=== PATIENT | male | born 1950 | race Caucasian/White ===

== ENCOUNTER → 2016-10-18 | Outpatient (CLI) | payer OTHER ==
[~2016-10-18] MED LIST: GLC/500 PO; HYZ/10015 PO; LPR25 PO; METF500T PO; SIMV80TA2 PO; TERA5CAP PO
[2016-10-18 16:22] LABS: ALT/SGPT 26 U/L (12-78); AST/SGOT 13 U/L (15-37); BLOOD UREA NITROGEN 16 mg/dl (7-18); BUN/CREATININE RATIO 16.2 (10-20); CALCIUM 9.9 mg/dl (8.5-10.1); CARBON DIOXIDE 29 mmol/L (21-32); CHLORIDE 105 mmol/L (98-107); GLUCOSE 113 mg/dl (70-99); POTASSIUM 4.4 mmol/L (3.5-5.1); SODIUM 141 mmol/L (136-145)
[2016-10-18 16:23] LABS: RATIO 134.9 mcg/mg (0-30.0)
[2016-10-18 16:24] LABS: ALKALINE PHOSPHATASE 57 U/L (45-117); CHOLESTEROL 152 mg/dl (0-200); CHOLESTEROL/HDL RATIO 4.6; HDL CHOLESTEROL 33 mg/dl; LDL CHOLESTEROL CALCULATED 67 mg/dl; TRIGLYCERIDES 260 mg/dl (0-150); VERY LOW DENSITY LIPOPROT CALC 52 mg/dl
[2016-10-19 06:32] LABS: ESTIMATED AVERAGE GLUCOSE 177 mg/dl; HA1C FLAG Normal (Normal)
== END | disposition home or self-care (01) ==
LOC: C.LAB1850 14:52
PROVIDERS: ATTEND Internal Medicine Endocrinology, Diabetes & Metabolism
DX: E11.9 Type 2 diabetes mellitus without complications (principal)

== ENCOUNTER → 2017-01-25 | Outpatient (CLI) | payer OTHER ==
[2017-01-25 10:08] LABS: ESTIMATED AVERAGE GLUCOSE 174 mg/dl; HA1C FLAG Normal (Normal)
[2017-01-25 10:11] LABS: BLOOD UREA NITROGEN 17 mg/dl (7-18); BUN/CREATININE RATIO 15.1 (10-20); CALCIUM 9.6 mg/dl (8.5-10.1); CARBON DIOXIDE 27 mmol/L (21-32); CHLORIDE 105 mmol/L (98-107); GLUCOSE 120 mg/dl (70-99); POTASSIUM 4.3 mmol/L (3.5-5.1); SODIUM 139 mmol/L (136-145)
[2017-01-25 10:26] LABS: PROLACTIN 8.8 ng/mL
== END | disposition home or self-care (01) ==
LOC: C.LAB1850 08:49
PROVIDERS: ATTEND Physician Assistant
DX: E11.9 Type 2 diabetes mellitus without complications (principal); N52.9 Male erectile dysfunction, unspecified

== ENCOUNTER → 2017-03-06 | Outpatient (CLI) | payer OTHER ==
--- NOTE | 2017-03-06 12:44 | DIAGNOSTIC IMAGING REPORT ---
CHEST 2 VIEWS ROUTINE CLINICAL HISTORY: CHRONIC COUGH COMPARISON STUDY: 09/04/2012 FINDINGS: The heart is normal in size. There is basilar interstitial thickening. There is aortic tortuosity/ectasia which remain stable. There is no lobar consolidation. No pleural effusions are visualized.[ IMPRESSION: Slight progression in the basilar residual thickening. No evidence of focal pulmonary consolidation. Electronically signed by: Guillaume Stewart M.D. 03/06/2017 12:43 PM Dictated Date/Time: 03/06/2017 12:41 PM
== END | disposition home or self-care (01) ==
LOC: C.RAD 12:11
PROVIDERS: ATTEND Family Medicine
DX: R05 Cough (principal)

== ENCOUNTER → 2017-03-16 | Outpatient (CLI) | payer OTHER ==
--- NOTE | 2017-03-17 09:53 | PULMONARY FUNCTION TEST ---
CLINICAL DATA: 66-year-old male with a height of 71 inches and a weight of [address] Hickey for evaluation of shortness of breath and cough. Spirometry pre-bronchodilator was performed. FINDINGS: Prebronchodilator spirometry demonstrates very mild obstructive changes. FVC was 85% of predicted. FEV1 was 83% of predicted. [id number] was 79% of predicted. IMPRESSION: Very mild small airway obstruction possibly consistent with asthma. However, the patient had a difficult time doing reproducible results due to cough.
== END | disposition home or self-care (01) ==
LOC: C.RC 11:20
PROVIDERS: ATTEND Family Medicine
DX: R05 Cough (principal)

== ENCOUNTER → 2017-08-01 | Outpatient (CLI) | payer OTHER ==
[2017-08-01 16:04] LABS: ALBUMIN 3.9 gm/dl (3.4-5.0); ALT/SGPT 31 U/L (12-78); AST/SGOT 19 U/L (15-37); BLOOD UREA NITROGEN 15 mg/dl (7-18); CALCIUM 9.4 mg/dl (8.5-10.1); CARBON DIOXIDE 25 mmol/L (21-32); CREATININE 1.04 mg/dl (0.60-1.40); GLUCOSE 129 mg/dl (70-99); POTASSIUM 4.2 mmol/L (3.5-5.1); SODIUM 137 mmol/L (136-145)
[2017-08-01 16:06] LABS: ALKALINE PHOSPHATASE 58 U/L (45-117); CHOLESTEROL 170 mg/dl (0-200); LDL CHOLESTEROL CALCULATED 92 mg/dl; TOTAL PROTEIN 7.7 gm/dl (6.4-8.2)
[2017-08-01 19:36] LABS: CREATININE RANDOM URINE 64.1 mg/dl
[2017-08-02 06:04] LABS: HEMOGLOBIN A1C 7.2 % (4.5-5.6)
== END | disposition home or self-care (01) ==
LOC: C.LAB1850 12:47
PROVIDERS: ATTEND Physician Assistant
DX: E11.9 Type 2 diabetes mellitus without complications (principal)

== ENCOUNTER → 2017-08-21 | Outpatient (CLI) | payer OTHER ==
--- NOTE | 2017-08-21 10:33 | DIAGNOSTIC IMAGING REPORT ---
ULTRASOUND KIDNEYS AND BLADDER CLINICAL HISTORY: Hypertension. Chronic kidney disease. COMPARISON STUDY: Abdominal CT dated 12/21/2009. TECHNIQUE: Real-time, grayscale, and color flow sonography of the kidneys and bladder is performed. Images are reviewed in the transverse and longitudinal planes. FINDINGS: Kidneys: The right kidney is not identified. There is compensatory hypertrophy of the left kidney which measures 16.4 x 7.7 x 7.3 cm. There is no hydronephrosis. A small exophytic cyst measures up to 1.7 cm. Numerous parapelvic cysts are identified on the left. No shadowing renal calculi are identified. There is no sonographic evidence of contour deforming renal mass lesion. No perinephric fluid is identified. Bladder: The bladder is normal in appearance. The left ureteral jet was seen. Upper abdomen: Survey images of the upper abdomen show hepatomegaly and hepatic steatosis. IMPRESSION: 1. The right kidney is not identified. 2. There is compensatory hypertrophy of the left kidney. No hydronephrosis is seen. 3. There are numerous left-sided parapelvic cysts. 4. The bladder was normal as imaged. Electronically signed by: Harsh Duval M.D. 08/21/2017 10:32 AM Dictated Date/Time: 08/21/2017 10:29 AM
== END | disposition home or self-care (01) ==
LOC: C.ULTR 09:48
PROVIDERS: ATTEND Internal Medicine Nephrology
DX: I12.9 Hypertensive chronic kidney disease with stage 1 through stage 4 chronic kidney disease, or unspecified chronic kidney disease (principal); N18.9 Chronic kidney disease, unspecified; R80.9 Proteinuria, unspecified; N28.81 Hypertrophy of kidney; N28.1 Cyst of kidney, acquired

== ENCOUNTER → 2017-08-21 | Outpatient (CLI) | payer OTHER ==
[2017-08-21 09:54] LABS: HEMATOCRIT 43.4 % (42-52); HEMOGLOBIN 14.6 g/dL (14.0-18.0); MEAN CELL VOLUME 93.5 fL (80-100); MEAN CORPUSCULAR HEMOGLOBIN 31.5 pg (25-34); MEAN CORPUSCULAR HGB CONC 33.6 g/dl (32-36); MEAN PLATELET VOLUME 10.4 fL (7.4-10.4); PLATELET COUNT 259 K/uL (130-400); RED CELL DISTRIBUTION WIDTH CV 14.2 % (11.5-14.5); RED CELL DISTRIBUTION WIDTH SD 47.8 fL (36.4-46.3); WHITE BLOOD COUNT 9.94 K/uL (4.8-10.8)
[2017-08-21 10:35] LABS: ALBUMIN 3.7 gm/dl (3.4-5.0); ALT/SGPT 25 U/L (12-78); AST/SGOT 16 U/L (15-37); BLOOD UREA NITROGEN 16 mg/dl (7-18); CALCIUM 9.6 mg/dl (8.5-10.1); CARBON DIOXIDE 26 mmol/L (21-32); CREATININE 1.11 mg/dl (0.60-1.40); GLUCOSE 171 mg/dl (70-99); POTASSIUM 4.3 mmol/L (3.5-5.1); SODIUM 136 mmol/L (136-145)
[2017-08-21 10:37] LABS: ALKALINE PHOSPHATASE 63 U/L (45-117); TOTAL PROTEIN 7.5 gm/dl (6.4-8.2)
== END | disposition home or self-care (01) ==
LOC: C.LAB1850 08:52
PROVIDERS: ATTEND Internal Medicine Nephrology
DX: I12.9 Hypertensive chronic kidney disease with stage 1 through stage 4 chronic kidney disease, or unspecified chronic kidney disease (principal); R80.9 Proteinuria, unspecified; N18.9 Chronic kidney disease, unspecified

== ENCOUNTER → 2017-10-17 | Outpatient (CLI) | payer OTHER ==
[2017-10-17 15:50] LABS: ALBUMIN 3.7 gm/dl (3.4-5.0); BLOOD UREA NITROGEN 12 mg/dl (7-18); CARBON DIOXIDE 26 mmol/L (21-32); CREATININE 1.13 mg/dl (0.60-1.40); GLUCOSE 208 mg/dl (70-99); PHOSPHORUS 3.4 mg/dl (2.5-4.9); POTASSIUM 4.5 mmol/L (3.5-5.1); SODIUM 137 mmol/L (136-145)
== END | disposition home or self-care (01) ==
LOC: C.LAB1850 14:34
PROVIDERS: ATTEND Internal Medicine Nephrology
DX: E55.9 Vitamin D deficiency, unspecified (principal)

== ENCOUNTER → 2017-12-12 | Outpatient (CLI) | payer OTHER ==
[2017-12-12 15:42] LABS: ALBUMIN 3.9 gm/dl (3.4-5.0); BLOOD UREA NITROGEN 12 mg/dl (7-18); CALCIUM 9.2 mg/dl (8.5-10.1); CARBON DIOXIDE 28 mmol/L (21-32); CREATININE 0.99 mg/dl (0.60-1.40); GLUCOSE 90 mg/dl (70-99); POTASSIUM 4.5 mmol/L (3.5-5.1); SODIUM 140 mmol/L (136-145)
[2017-12-12 15:43] LABS: PHOSPHORUS 3.1 mg/dl (2.5-4.9)
[2017-12-13 06:01] LABS: HEMOGLOBIN A1C 6.5 % (4.5-5.6)
== END | disposition home or self-care (01) ==
LOC: C.LAB1850 13:17
PROVIDERS: ATTEND Internal Medicine Nephrology
DX: E11.9 Type 2 diabetes mellitus without complications (principal); E55.9 Vitamin D deficiency, unspecified; N18.9 Chronic kidney disease, unspecified

== ENCOUNTER → 2018-03-06 | Outpatient (CLI) | payer OTHER ==
[2018-03-06 12:33] LABS: HEMOGLOBIN 14.3 g/dL (14.0-18.0); MEAN CELL VOLUME 92.7 fL (80-100); MEAN CORPUSCULAR HEMOGLOBIN 30.8 pg (25-34); MEAN CORPUSCULAR HGB CONC 33.3 g/dl (32-36); MEAN PLATELET VOLUME 10.3 fL (7.4-10.4); PLATELET COUNT 230 K/uL (130-400); RED CELL DISTRIBUTION WIDTH CV 13.8 % (11.5-14.5); RED CELL DISTRIBUTION WIDTH SD 46.6 fL (36.4-46.3); WHITE BLOOD COUNT 5.65 K/uL (4.8-10.8)
[2018-03-06 13:30] LABS: ALBUMIN 3.5 gm/dl (3.4-5.0); ALT/SGPT 22 U/L (12-78); BLOOD UREA NITROGEN 18 mg/dl (7-18); CALCIUM 8.7 mg/dl (8.5-10.1); CARBON DIOXIDE 25 mmol/L (21-32); CHOLESTEROL 112 mg/dl (0-200); CREATININE 1.16 mg/dl (0.60-1.40); GLUCOSE 161 mg/dl (70-99); LDL CHOLESTEROL CALCULATED 53 mg/dl; PHOSPHORUS 3.2 mg/dl (2.5-4.9); POTASSIUM 4.1 mmol/L (3.5-5.1); SODIUM 138 mmol/L (136-145)
== END | disposition home or self-care (01) ==
LOC: C.LAB1850 11:47
PROVIDERS: ATTEND Internal Medicine Nephrology
DX: I12.9 Hypertensive chronic kidney disease with stage 1 through stage 4 chronic kidney disease, or unspecified chronic kidney disease (principal); N26.1 Atrophy of kidney (terminal); N18.9 Chronic kidney disease, unspecified; R80.9 Proteinuria, unspecified; E55.9 Vitamin D deficiency, unspecified; E11.22 Type 2 diabetes mellitus with diabetic chronic kidney disease

== ENCOUNTER 2021-02-20 01:40 | Inpatient (IN) ==
[2021-02-20] MEDS ORDERED: SODIUM CHLORIDE 0.9% 1000ML 1,000 ML IV SCH (02:00)
[2021-02-20 02:13] LABS: Basophils # (auto) 0.02 K/uL (0-0.2); Basophils % (auto) 0.1 %; Eosinophils # (auto) 0.05 K/uL (0-0.5); Eosinophils % (auto) 0.3 %; Hematocrit (blood only) 38.7 % (42-52); Hemoglobin 13.2 g/dL (14.0-18.0); Immature Granulocytes # (auto) 0.05 K/uL (0.00-0.02); Immature Granulocytes % (auto) 0.3 %; Lymphocytes # (auto) 0.78 K/uL (1.2-3.4); Lymphocytes % (auto) 4.6 %; Mean Corpuscular Hemoglobin 31.6 pg (25-34); Mean Corpuscular Hgb Conc 34.1 g/dL (32-36); Mean Corpuscular Volume 92.6 fL (80-100); Mean Platelet Volume 9.8 fL (7.4-10.4); Monocytes # (auto) 1.82 K/uL (0.11-0.59); Monocytes % (auto) 10.8 %; Neutrophils # (auto) 14.18 K/uL (1.4-6.5); Neutrophils % (auto) 83.9 %; Platelet Count 111 K/uL (130-400); RDW Standard Deviation 47.5 fL (36.4-46.3); Red Blood Count 4.18 M/uL (4.7-6.1)
[2021-02-20 02:36] LABS: Albumin Level 3.7 gm/dl (3.4-5.0); BUN Creatinine Ratio 15.1 (10-20); Calcium 8.9 mg/dl (8.5-10.1); Creatinine Clr Calc Pharmacy 77.5 ml/min; Est GFR (African American) 67.7 ml/min; Est GFR (Non-African American) 58.4 ml/min; Magnesium 1.8 mg/dl (1.8-2.4); Potassium 3.7 mmol/L (3.5-5.1)
[2021-02-20 02:47] LABS: Albumin Globulin Ratio 1.1 (0.9-2); Bilirubin,Total 0.8 mg/dl (0.2-1); Globulin 3.4 gm/dl (2.5-4.0); Thyroid Stimulating Hormone 1.11 uIu/ml (0.300-4.500); Total Protein 7.1 gm/dl (6.4-8.2)
[2021-02-20 04:37] LABS: Appearance Urine Cloudy (Clear); Bacteria Urine Automated 4+ (Negative); Bilirubin Urine Negative (Negative); Blood Urine Trace (Negative); Color Urine Dark Yellow; Epithelial Cell Urine Auto 0-5 /lpf (0-5); Glucose Urine UA Negative (Negative); Ketones Urine 1+ (Negative); Leukocyte Esterase Urine 2+ (Negative); Nitrite Urine Positive (Negative); Protein Urine 3+ (Negative); RBC Urine Automated 0-4 /hpf (0-4); Specific Gravity Urine 1.022 (1.000-1.030); Urobilinogen Urine Negative (Negative); WBC Urine Automated >30 /hpf (0-5)
[2021-02-20] MEDS ORDERED: cefTRIAXone SODIUM 2,000 MG/70 ML BAG IV STA (05:36)
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
[2021-02-20] MEDS ORDERED: GLUCAGON FOR INJ 1 MG VIAL SQ PRN (07:43)
[2021-02-20] MEDS ORDERED: GLUCOSE 40% GEL 15 GM TUBE PO PRN (07:43)
[2021-02-20] MEDS ORDERED: CARBOHYDRATES FOR HYPOGLYCEMIA PO PRN (07:43)
[2021-02-20] MEDS ORDERED: GLUCOSE 10 TABS/TUBE PO PRN (07:43)
[2021-02-20] MEDS ORDERED: LACTATED RINGER'S 1,000 ML IV SCH (07:43)
[2021-02-20] MEDS ORDERED: ONDANSETRON INJ 2 MG/ML 2 ML VIAL IV PRN (07:43)
[2021-02-20] MEDS ORDERED: DEXTROSE 50% 50 ML SYRINGE IV PRN (07:43)
[2021-02-20] MEDS ORDERED: ACETAMINOPHEN 325 MG TAB PO PRN (07:43)
--- NOTE | 2021-02-20 07:47 | XRay Report ---
XR chest 1V portable CLINICAL HISTORY: weakness COMPARISON STUDY: Chest radiograph March 06, 2017. FINDINGS: There is moderate elevation of left hemidiaphragm. This is mildly increased. Left basilar o pacity favors atelectasis. Cardiomediastinal silhouette is stable allowing for mild patient rotation. There is no pneumothorax or pleural effusion. There is pulmonary vascular congestion. IMPRESSION: 1. Elevation of the left hemidiaphragm with left basilar opacity that favors atelectasis. 2. Pulmonary vascular congestion without overt pulmonary edema. ACT 112: Negative or not required by law. Electronically signed by: Jaya Beasley M.D. 02/20/2021 7:46 AM
[2021-02-20] MEDS: METOPROLOL TARTRATE 25 MG TAB PO SCH ×2 (09:49→20:31)
[2021-02-20] MEDS: LOSARTAN POTASSIUM 25 MG TAB PO SCH (09:49)
[2021-02-20] MEDS: LOSARTAN POTASSIUM 50 MG TAB PO SCH (09:49)
[2021-02-20] MEDS: [UNRECOGNIZED DRUG - OTHER] SCH ×3 (09:49→23:49)
[2021-02-20] MEDS: INSULIN ASPART 100 UNITS/ML 3 ML PEN SC SCH ×4 (09:50→21:39)
[2021-02-20] MEDS: INSULIN GLARGINE SOLOSTAR 100 UNITS/ML 3 ML PEN SC SCH ×2 (09:53→21:39)
--- NOTE | 2021-02-20 09:55 | Electrocardiogram Report ---
Test Reason : Blood Pressure : / mmHG Vent. Rate : 089 BPM Atrial Rate : 089 BPM P-R Int : 162 ms QRS Dur : 090 ms QT Int : 348 ms P-R-T Axes : 058 -13 077 degrees QTc Int : 423 ms Poor data quality, interpretation may be adversely affected Normal sinus rhythm with sinus arrhythmia Nonspecific T wave abnormality Abnormal ECG When compared with ECG of 04-SEP-2012 12:26, Present Nonspecific T wave abnormality now evident in Lateral leads Confirmed by Donny Valentine ([id number]) on 02/20/2021 9:55:20 AM Referred By: REFERRED SELF Confirmed By:Donny Valentine
--- NOTE | 2021-02-20 14:47 | CT Scan Report ---
CT OF THE ABDOMEN AND PELVIS WITHOUT CONTRAST CLINICAL HISTORY: ? Obstructive uropathy COMPARISON STUDY: CT of the abdomen and pelvis December 21, 2009. Renal ultrasound August 21, 2017. TECHNIQUE: Axial images of the abdomen and pelvis were obtained without IV contrast. Images were revi ewed in the axial, sagittal, and coronal planes. Automated exposure control was utilized for the sharon dy. A dose lowering technique was utilized adhering to the principles of ALARA. FINDINGS: No pneumatosis, free air or portal venous gas is present. The right kidney is markedly atro phic. This is unchanged. There is compensatory hypertrophy of the left kidney. There is mild left per inephric stranding. There are left-sided parapelvic cysts. A water attenuation lesion within the lowe r pole of the left kidney measuring 2 cm favors a cyst. This is suboptimally assessed on this unenhan elisabeth exam. There is a 2.2 cm lesion within the midpole of the left kidney which measures just above wa ter attenuation. This is shown on axial image 189 of 511. There are cysts several small left renal ca lculi that measure up to 2 mm. There are no ureteral calculi. There is no hydronephrosis. There is no evidence for a bowel obstruction. Colonic diverticulosis is noted without evidence for acute diverti culitis. Prostate is moderately enlarged. Bladder wall thickening is noted. Cruz balloon within the bladder is noted. There is mild adjacent infiltration. No acute fracture or suspicious lesion is iden tified within the visualized skeletal structures. There is hepatic steatosis. IMPRESSION: 1. Left-sided nephrolithiasis. No ureteral calculi or hydronephrosis. Left-sided parapelvic cysts. 2. Atrophic right kidney. Compensatory hypertrophy of the left kidney with left perinephric stranding , a nonspecific finding. 3. Bladder wall thickening with adjacent infiltration which could be correlated with urinalysis. Mode rately enlarged prostate. 4. 2.2 cm lesion within the lateral cortex of the midpole of the left kidney. This probably reflects a cyst however this measures above water attenuation and a renal ultrasound is recommended for confir mation. ACT 112: Negative or not required by law. Electronically signed by: Jaya Beasley M.D. 02/20/2021 2:45 PM
[2021-02-20] MEDS: SODIUM CHLORIDE 0.9% 500 ML IV SCH ×3 (16:21→23:49)
[2021-02-20] MEDS ORDERED: LORazepam 0.5 MG/1 ML VIAL IV STA (17:56)
[2021-02-20] MEDS ORDERED: LORazepam 0.5 MG TAB PO PRN (17:56)
--- NOTE | 2021-02-20 18:05 | Communication Note ---
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 He was unable to get out of bed this morning due to profound weakness. White count was 16.9 but otherwise he was hemodynamically stable. Urine was grossly infected as it was both nitrite and leukocyte esterase positive. He has a quinolone allergy and he was given Rocephin and subsequently admitted to the floor. Upon arrival to the floor, nursing was concerned because patient was profoundly weak and unable to sit up in bed. Note per attending to notes that is primarily why he was brought to the emergency department. Upon my assessment, he was awake and alert and answering all questions appropriately but admitted to being profoundly weak. He denies fevers, chills, chest pain, shortness of breath, abdominal pain. Is having dysuria and retention. Cruz catheter ordered admitting physician. I did do a CT of the abdomen and pelvis to rule out obstructive process. This is showing an enlarged prostate with evidence of cystitis. No evidence of hydronephrosis, pyelonephritis or obstruction. Admitting orders continued with the addition of IV fluids. Notified again at 1800 that patient becoming slightly confused and that he continues to try to get out of bed. He remains hemodynamically stable. Likely has associated infectious encephalopathy from urinary tract infection. He has only had 1 dose of IV fluids at this point. Ideally, we would use quinolones as prostate enlarged and may have associated prostatitis with cystitis; however, patient with quinolone allergy. We will continue Rocephin for now We will order Ativan as needed and a head CT to rule out acute intracranial process. With grossly infected urine, leukocytosis and cystitis/prostatitis seen on imagingseems to likely have infectious encephalopathy and likely needs additional antibiotic therapy and IV hydration We will transfer to [facility]/telemetry for higher level of care
--- NOTE | 2021-02-20 18:43 | CT Scan Report ---
CT OF THE HEAD WITHOUT CONTRAST CLINICAL HISTORY: r/o CVA- AMS COMPARISON STUDY: No previous studies for comparison. CT DOSE: 2342.54 mGy.cm TECHNIQUE: Helical axial images of the head were obtained without IV contrast. Automated exposure con trol was utilized for the study. A dose lowering technique was utilized adhering to the principles o f ALARA. FINDINGS: No acute intracranial hemorrhage, midline shift or mass effect is present. There is moderat e dilatation of the lateral ventricles and the third ventricle. White matter hypodensity suggests sma ll vessel disease. There are no findings to suggest acute dural sinus thrombosis or acute territorial infarct. 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 Mucous retention cyst within the left maxillary s inus is noted. No acute calvarial fracture. Minimal ethmoid sinus mucosal thickening is present. IMPRESSION: 1. No acute intracranial hemorrhage. 2. Moderate ventricular dilatation. This is likely due to atrophy although normal pressure hydrocepha jean could appear similar. 3. White matter hypodensities suggestive of small vessel disease. ACT 112: Negative or not required by law. Electronically signed by: Jaya Beasley M.D. 02/20/2021 6:41 PM
[2021-02-20] MEDS: ATORVASTATIN 40 MG TAB PO SCH (20:31)
[2021-02-20] MEDS: ASPIRIN 81 MG ECTAB PO SCH (20:31)
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
[2021-02-21] MEDS: SODIUM CHLORIDE 0.9% 500 ML IV SCH ×2 (04:53→10:00)
[2021-02-21] MEDS ORDERED: cefTRIAXone SODIUM 2,000 MG in DEXTROSE 5% 50 ML IV SCH (06:00)
[2021-02-21] MEDS ORDERED: MEROPENEM CONSULT ACITVE PRN (07:59)
[2021-02-21] MEDS ORDERED: MEROPENEM 1,000 MG in SYRINGE 0 ML IV SCH (08:00)
[2021-02-21] MEDS: METOPROLOL TARTRATE 25 MG TAB PO SCH ×2 (08:21→21:24)
[2021-02-21] MEDS: LOSARTAN POTASSIUM 50 MG TAB PO SCH (08:21)
[2021-02-21] MEDS: LOSARTAN POTASSIUM 25 MG TAB PO SCH (08:21)
[2021-02-21] MEDS: INSULIN GLARGINE SOLOSTAR 100 UNITS/ML 3 ML PEN SC SCH ×2 (08:22→21:27)
[2021-02-21] MEDS: [UNRECOGNIZED DRUG - OTHER] SCH ×3 (08:22→23:08)
[2021-02-21] MEDS: INSULIN ASPART 100 UNITS/ML 3 ML PEN SC SCH ×4 (08:24→21:27)
[2021-02-21 09:04] LABS: Hematocrit (blood only) 36.9 % (42-52); Hemoglobin 12.2 g/dL (14.0-18.0); Mean Corpuscular Hemoglobin 31.4 pg (25-34); Mean Corpuscular Hgb Conc 33.1 g/dL (32-36); Mean Corpuscular Volume 95.1 fL (80-100); Mean Platelet Volume 9.8 fL (7.4-10.4); Platelet Count 196 K/uL (130-400); RDW Coefficient of Variation 14.4 % (11.5-14.5); RDW Standard Deviation 49.8 fL (36.4-46.3); Red Blood Count 3.88 M/uL (4.7-6.1); White Blood Count 16.23 K/uL (4.8-10.8)
[2021-02-21] MEDS: MEROPENEM 500 MG in SYRINGE 0 ML IV SCH ×3 (09:10→21:34)
[2021-02-21 09:14] LABS: BUN Creatinine Ratio 17.7 (10-20); Basophils # (auto) 0.02 K/uL (0-0.2); Basophils % (auto) 0.1 %; Calcium 8.6 mg/dl (8.5-10.1); Creatinine Clr Calc Pharmacy 83.8 ml/min; Eosinophils # (auto) 0.11 K/uL (0-0.5); Eosinophils % (auto) 0.7 %; Est GFR (African American) 74.1 ml/min; Est GFR (Non-African American) 63.9 ml/min; Immature Granulocytes # (auto) 0.06 K/uL (0.00-0.02); Immature Granulocytes % (auto) 0.4 %; Lymphocytes # (auto) 1.16 K/uL (1.2-3.4); Lymphocytes % (auto) 7.1 %; Monocytes % (auto) 8.6 %; Neutrophils # (auto) 13.48 K/uL (1.4-6.5); Neutrophils % (auto) 83.1 %; Potassium 3.9 mmol/L (3.5-5.1)
[2021-02-21] MEDS: ENOXAPARIN INJ 40 MG/0.4 ML SYR SQ SCH (10:04)
--- NOTE | 2021-02-21 13:08 | Ultrasound Report ---
RENAL ULTRASOUND CLINICAL HISTORY: abnl CT- ? left sided lesion/setting of uti COMPARISON STUDY: CT of the abdomen pelvis February 20, 2021. TECHNIQUE: Sonography of the kidneys and the urinary bladder was performed. FINDINGS: Right kidney was not visualized given marked atrophy. The left kidney measures 16.4 x 9.1 x 7.9 cm. There is no left hydronephrosis. Multiple left-sided parapelvic cysts are noted. 2.1 cm anec hoic lesion within the lateral cortex of the mid to lower pole of the left kidney corresponds to the indeterminate lesion by CT. This represents a cyst. The other suspected renal cyst shown by CT is not evident by sonography. Cruz balloon within the bladder is noted. The bladder is collapsed. IMPRESSION: 1. No left hydronephrosis. 2. 2.1 cm cyst within the lateral cortex of the mid to lower pole of the left kidney which correspond s to the lesion in question on CT of February 20, 2021. This is benign. ACT 112: Negative or not required by law. Electronically signed by: Jaya Beasley M.D. 02/21/2021 1:07 PM
--- NOTE | 2021-02-21 14:29 | Hospitalist Progress Note ---
Date of Service February 21, 2021 Assessment & Plan (1) Weakness: Plan: 70yo male presents with 1 day of generalized weakness, inability to get off the couch and ambulate. Symptoms accompanied by dysuria. Patient improved slightly in the ER after receiving IVF. However, still requiring two nurse assist to ambulate to the bathroom. Urinalysis suggestive of infection. Patient afebrile, hypertensive. HR of 97. WBC elevated at 16.9 -Initially hospitalized with Rocephin on board empirically given quinolone allergy -Initially, no changes made yesterday when seen as antibiotic regimen just begun; however, patient has shown no clinical improvement and if anything, some progression/decline -Urine culture showing preliminary growth of gram-negative bacillus -Will broaden antibiotic coverage to include antipseudomonal coverage given gram-negative bacillus but also ESBL given clinical decline (Merrem--> was D/W pharmacy). -We will de-escalate and tailor antibiotic regimen based on final culture data but for now patient is ill and needs broad-spectrum coverage (2) UTI (urinary tract infection): Plan: As above - patient with symptoms of retention requiring sherman--> ?secondary to associated prostatitis as prostate large on imagine - add flomax and hopefully with adequeate treatment of infection, can D/C sherman. Consider post void bladder scan to determine residual - add PSA for baseline - likely need referral to urology as OP - may consider 21 days of abx threapy for ? associated prostatitis. (3) Chronic kidney disease, stage II (mild): Plan: -Patient with CKD - single functioning kidney. -At baseline (4) Dyslipidemia: Plan: Chronic -Continue Atorvastatin 40mg HS (5) T2DM (type 2 diabetes mellitus): Plan: BS acceptable at present -Continue Victoza -Lantus 35u BID -ISS -Goal blood sugar 100 - 140 -Glipizide and Metformin on hold (6) Benign hypertension: Plan: Elevated at present -Continue Losartan -Continue Metoprolol (7) Peripheral arterial disease: Plan: Chronic. Stable -Continue ASA 81mg po daily -Continue Atorvastatin (8) Renal cyst: Plan: -chronic in comparison to prior study Plan: Lovenox for DVt prophylaxis CPAP qHS for TARUN plan of care to be D/W Dr. Madrigal. Further orders as warrented. Admission and Anticipated Discharge Date Admission Date: February 20, 2021 Subjective Patient seen on daily rounds today. Overall, has had continued generalized d ecline since admission. 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 Did have a white blood cell count of 16.9 was hemodynamically stable. Initially admitted to the [facility] unit. Nursing was concerned because patient was initially able to ambulate to the bathroom but as the morning progressed, could not even get out of bed. Into the evening, he got somewhat confused. Thought he "needed to go to work" and attempted to get out of bed but of course was unable given his profound weakness. Head CT obtained to ensure no acute process. It was negative. Patient had just been started on antibiotics yesterday morning. His weakness and altered mental status was thought to be related to infectious encephalopathy from his UTI. He was transitioned to a cardiac monitored bed. Today, his clinical picture remains unchanged. He remains afebrile and hemodynamically stable. White blood cell count remains elevated at 16.2 despite IV fluids and 24 hours of antibiotic therapy. Per staff, he has not seemed confused but is extremely weak. Patient complains of subjective fevers/chills, body aches, rigors, weakness. A Sherman catheter was inserted due to symptomatic retention and a severely enlarged prostate seen on imaging. He denies nausea, vomiting, GI symptoms. Review of Systems Review of Systems: All systems reviewed and are unremarkable except as noted in HPI and below + Subjective fevers, chills, body aches, rigors, weakness and urinary retention now s/p Sherman catheter insertion. Denies headache, nasal congestion, sore throat, cough, chest pain, shortness of breath, abdominal pain, nausea, vomiting, dysuria, hematuria, frequency, skin lesions or rashes. Physical Exam Physical Exam: General: Resting comfortably in his hospital bed. Does appear ill but not toxic Neck: No JVD. Negative hepatojugular reflex Cardiac: RRR with 1/6 SOFIA Lungs: Diminished without W/R/R Abdomen: Normoactive X4. Soft and nontender in all quadrants. Extremities: No peripheral clubbing cyanosis or edema Neuro: A&O X4 cranial nerves II through XII are grossly intact no focal neuro deficits Skin: No obvious skin lesions or rashes Results & Data Results & Data ([facility]) Vital Signs (Past 12 Hours) Vital Signs Temp Pulse Pulse Resp BP Pulse Ox Pulse Ox 02/21/21 13:18 91 02/21/21 07:57 37.0 C 73 19 159/74 H 90 02/21/21 07:39 71 02/21/21 04:05 36.6 C 72 28 H 124/55 L 93 02/21/21 02:25 72 27 H 94 Laboratory Results 02/21/21 08:50 02/21/21 08:50 Urine Culture Preliminary 02/21/21-723 Organism 1 Gram negative bacilli [place] Count >100,000 CFU/ml Sens Sensitivities to Follow Blood cultures obtained yesterday after evaluation by myself and pending Diagnostic Findings CT of the abdomen and pelvis without contrast: IMPRESSION: 1. Left-sided nephrolithiasis. No ureteral calculi or hydronephrosis. Left-sided parapelvic cysts. 2. Atrophic right kidney. Compensatory hypertrophy of the left kidney with left perinephric stranding, a nonspecific finding. 3. Bladder wall thickening with adjacent infiltration which could be correlated with urinalysis. Moderately enlarged prostate. 4. 2.2 cm lesion within the lateral cortex of the midpole of the left kidney. This probably reflects a cyst however this measures above water attenuation and a renal ultrasound is recommended for confirmation. CT of the head: IMPRESSION: 1. No acute intracranial hemorrhage. 2. Moderate ventricular dilatation. This is likely due to atrophy although normal pressure hydrocephalus could appear similar. 3. White matter hypodensities suggestive of small vessel disease. Given abnormality seen on CT involving the left kidneyan ultrasound was obtained: IMPRESSION: 1. No left hydronephrosis. 2. 2.1 cm cyst within the lateral cortex of the mid to lower pole of the left kidney which corresponds to the lesion in question on CT of February 20, 2021. This is benign. PG Care Time/CCT Total # of Minutes Spent Total Time Spent with Patient: Total time spent is greater than 50% in coordination of care (as documented) at patient's floor/unit and/or counseling patient: 60 [place] [address] Subseq Hosp Care Lvl 3 Patient Type Established Medical Decision Making High Complexity Diagnoses Weakness R53.1 UTI (urinary tract infection) N39.0 Chronic kidney disease, stage II (mild) N18.2 Dyslipidemia E78.5 T2DM (type 2 diabetes mellitus) E11.9 Benign hypertension I10 Peripheral arterial disease I73.9 Renal cyst N28.1 Time Spent (min) 60
[2021-02-21] MEDS: ASPIRIN 81 MG ECTAB PO SCH (21:23)
[2021-02-21] MEDS: TAMSULOSIN HCL 0.4 MG CAP PO SCH (21:24)
[2021-02-21] MEDS: ATORVASTATIN 40 MG TAB PO SCH (21:24)
[2021-02-22] MEDS: MEROPENEM 500 MG in SYRINGE 0 ML IV SCH ×2 (04:21→08:20)
[2021-02-22 06:33] LABS: Basophils # (auto) 0.02 K/uL (0-0.2); Basophils % (auto) 0.2 %; Eosinophils # (auto) 0.25 K/uL (0-0.5); Eosinophils % (auto) 2.7 %; Hematocrit (blood only) 36.8 % (42-52); Hemoglobin 12.3 g/dL (14.0-18.0); Immature Granulocytes # (auto) 0.04 K/uL (0.00-0.02); Immature Granulocytes % (auto) 0.4 %; Lymphocytes # (auto) 1.41 K/uL (1.2-3.4); Lymphocytes % (auto) 15.2 %; Mean Corpuscular Hemoglobin 31.2 pg (25-34); Mean Corpuscular Hgb Conc 33.4 g/dL (32-36); Mean Corpuscular Volume 93.4 fL (80-100); Mean Platelet Volume 10.2 fL (7.4-10.4); Monocytes # (auto) 0.62 K/uL (0.11-0.59); Monocytes % (auto) 6.7 %; Neutrophils # (auto) 6.91 K/uL (1.4-6.5); Neutrophils % (auto) 74.8 %; Platelet Count 203 K/uL (130-400); RDW Coefficient of Variation 14.1 % (11.5-14.5); RDW Standard Deviation 48.4 fL (36.4-46.3); Red Blood Count 3.94 M/uL (4.7-6.1); White Blood Count 9.25 K/uL (4.8-10.8)
[2021-02-22 07:13] LABS: BUN Creatinine Ratio 18.9 (10-20); Calcium 8.7 mg/dl (8.5-10.1); Creatinine Clr Calc Pharmacy 87.3 ml/min; Est GFR (African American) 79.8 ml/min; Est GFR (Non-African American) 68.9 ml/min; Magnesium 2.6 mg/dl (1.8-2.4); Potassium 4.1 mmol/L (3.5-5.1)
[2021-02-22] MEDS: [UNRECOGNIZED DRUG - OTHER] SCH (07:19)
[2021-02-22 07:48] LABS: Estimated Average Glucose 148 mg/dl; Hemoglobin A1C 6.8 % (4.5-5.6)
[2021-02-22] MEDS: METOPROLOL TARTRATE 25 MG TAB PO SCH ×2 (08:15→20:15)
[2021-02-22] MEDS: LOSARTAN POTASSIUM 25 MG TAB PO SCH (08:15)
[2021-02-22] MEDS: LOSARTAN POTASSIUM 50 MG TAB PO SCH (08:15)
[2021-02-22] MEDS: INSULIN GLARGINE SOLOSTAR 100 UNITS/ML 3 ML PEN SC SCH ×2 (08:16→20:16)
[2021-02-22] MEDS: ENOXAPARIN INJ 40 MG/0.4 ML SYR SQ SCH (08:16)
[2021-02-22] MEDS: INSULIN ASPART 100 UNITS/ML 3 ML PEN SC SCH ×4 (08:17→20:17)
[2021-02-22] MEDS: cefTRIAXone SODIUM 2,000 MG in DEXTROSE 5% 50 ML IV SCH (10:37)
--- NOTE | 2021-02-22 17:13 | Hospitalist Progress Note ---
Date of Service February 22, 2021 Assessment & Plan (1) Weakness: Plan: 70yo male presents with 1 day of generalized weakness, inability to get off the couch and ambulate. Symptoms accompanied by dysuria. Urinalysis suggestive of infection. Patient afebrile, hypertensive. HR of 97. WBC elevated at 16.9 Initially was unable to even sit up in bed for the first 24 to 36 hours of admission -Secondary to acute prostatitis and UTI -Antibiotics as below Significantly improved and now ambulating the hallways (2) UTI (urinary tract infection): Plan: Acute prostatitis-with evidence of UTI, moderately enlarged prostate on CT scan, bladder wall thickening, fever, tachycardia and sepsis on admission - patient with symptoms of retention requiring sherman--> likely secondary to associated prostatitis and prostate enlargement on imaging - added flomax and discontinued on 02/22 and passed trial of void -PSA is elevated at 21-could be secondary to acute prostatitis, but will need to be followed as an outpatient Urine culture with E. coli resistant to ampicillin and ampicillin/sulbactam -We will treat for 14 days with antibiotics-discontinue meropenem today and narrowed down to Rocephin. Eventually can convert to oral cephalosporin upon discharge Appreciate any further urology input on enlarged prostate, urinary retention, follow-up on elevated PSA, and renal cyst (3) Chronic kidney disease, stage II (mild): Plan: -Patient with CKD - single functioning kidney. -At baseline renal function here Follows with nephrology (4) Dyslipidemia: Plan: Chronic -Continue Atorvastatin 40mg HS (5) T2DM (type 2 diabetes mellitus): Plan: Blood glucose has been elevated here but is now improving Hemoglobin A1c well controlled at 6.8% He does not have his home Victoza-discontinue while inpatient Continue Lantus and NovoLog -Glipizide and Metformin on hold (6) Benign hypertension: Plan: Blood pressures here are mildly elevated -Continue Losartan 75 mg daily -Continue Metoprolol but was ordered as once daily-increase to twice daily (7) Peripheral arterial disease: Plan: Chronic. Stable -Continue ASA 81mg po daily -Continue Atorvastatin (8) Renal cyst: Plan: h/o RCC left kidney with resection burn CD for patient to take to his Urologist at follow-up appointment-Dr. Fran Nowak in [place] although it appears the lesion seen on CT scan was confirmed to be a cyst on ultrasound some most likely benign (9) Obesity: Plan: BMI 44.0 Needs weight loss (10) Sleep apnea: Plan: Continue CPAP nightly Plan: Lovenox for DVt prophylaxis Disposition-continued stay, but can likely discharge to home tomorrow if continues to improve Admission and Anticipated Discharge Date Admission Date: February 20, 2021 Subjective Patient feeling much improved today. He is walking the halls before I saw him for the first time in days. He had his Sherman catheter removed and is voiding on his own. He is eating and drinking, no nausea or abdominal pain, no diarrhea. Telemetry with normal sinus rhythm with rates in the 60s to 80s Review of Systems Review of Systems: All systems reviewed & are unremarkable except as noted in HPI & below Physical Exam Constitutional: WD/WN, vitals as above Eyes: + anicteric sclerae ENMT: external ear and nose normal, oropharynx normal Neck: trachea midline, no thyromegaly Respiratory: normal respiratory effort, lungs clear to auscultation Cardiovascular: RRR, no murmur, no edema Chest (Breasts): Chest: normal inspection of chest Gastrointestinal (Abdomen): normal bowel sounds, soft, nontender, no hepatosplenomegaly Musculoskeletal: Extremities: extremities normal to inspection; no cyanosis and no clubbing Skin: no rashes, warm and dry Neurologic: moves all extremities and awake; no focal motor deficits Psychiatric: A+Ox3, euthymic affect Lymphatic: no lymphedema Results & Data Results & [facility] ([facility]) Vital Signs (Past 12 Hours) Vital Signs Temp Pulse Pulse Resp BP BP Pulse Ox 02/22/21 16:00 36.3 C L 64 20 149/84 H 154/80 H 94 02/22/21 14:50 66 02/22/21 11:16 36.6 C 68 18 124/72 93 02/22/21 10:19 67 02/22/21 07:00 36.9 C 68 22 147/81 H 92 Laboratory Results 02/22/21 02/22/21 02/22/21 Range/Units 20:07 17:12 11:23 WBC (4.8-10.8) K/uL RBC (4.7-6.1) M/uL Hgb (14.0-18.0) g/dL Hct (42-52) % MCV (80-100) fL MCH (25-34) pg MCHC (32-36) g/dL RDW Std Deviation (36.4-46.3) fL RDW Coeff of Amor (11.5-14.5) % Plt Count (130-400) K/uL MPV (7.4-10.4) fL Immature Gran % (Auto) % Neut % (Auto) % Lymph % (Auto) % [place] % (Auto) % Eos % (Auto) % Baso % (Auto) % Neut # (Auto) (1.4-6.5) K/uL Lymph # (Auto) (1.2-3.4) K/uL [place] # (Auto) (0.11-0.59) K/uL Eos # (Auto) (0-0.5) K/uL Baso # (Auto) (0-0.2) K/uL Immature Gran # (Auto) (0.00-0.02) K/uL Sodium (136-145) mmol/L Potassium (3.5-5.1) mmol/L Chloride (98-107) mmol/L Carbon Dioxide (21-32) mmol/L Anion Gap (3-11) BUN (7-18) mg/dl Creatinine (0.6-1.4) mg/dl Est Cr Clr Drug Dosing ml/min Est GFR ( Amer) ml/min Est GFR (Non-Af Amer) ml/min BUN/Creatinine Ratio (10-20) Glucose (70-99) mg/dl POC Glucose 151 H 117 H 185 H (70-99) mg/dl Estimat Average Glucose mg/dl Hemoglobin A1c (4.5-5.6) % Calcium (8.5-10.1) mg/dl Magnesium (1.8-2.4) mg/dl 02/22/21 02/22/21 02/22/21 Range/Units 07:43 06:17 06:17 WBC 9.25 (4.8-10.8) K/uL RBC 3.94 L (4.7-6.1) M/uL Hgb 12.3 L (14.0-18.0) g/dL Hct 36.8 L (42-52) % MCV 93.4 (80-100) fL MCH 31.2 (25-34) pg MCHC 33.4 (32-36) g/dL RDW Std Deviation 48.4 H (36.4-46.3) fL RDW Coeff of Amor 14.1 (11.5-14.5) % Plt Count 203 (130-400) K/uL MPV 10.2 (7.4-10.4) fL Immature Gran % (Auto) 0.4 % Neut % (Auto) 74.8 % Lymph % (Auto) 15.2 % [place] % (Auto) 6.7 % Eos % (Auto) 2.7 % Baso % (Auto) 0.2 % Neut # (Auto) 6.91 H (1.4-6.5) K/uL Lymph # (Auto) 1.41 (1.2-3.4) K/uL [place] # (Auto) 0.62 H (0.11-0.59) K/uL Eos # (Auto) 0.25 (0-0.5) K/uL Baso # (Auto) 0.02 (0-0.2) K/uL Immature Gran # (Auto) 0.04 H (0.00-0.02) K/uL Sodium 140 (136-145) mmol/L Potassium 4.1 (3.5-5.1) mmol/L Chloride 110 H (98-107) mmol/L Carbon Dioxide 26 (21-32) mmol/L Anion Gap 4.0 (3-11) BUN 21 H (7-18) mg/dl Creatinine 1.09 (0.6-1.4) mg/dl Est Cr Clr Drug Dosing 87.3 ml/min Est GFR ( Amer) 79.8 ml/min Est GFR (Non-Af Amer) 68.9 ml/min BUN/Creatinine Ratio 18.9 (10-20) Glucose 126 H (70-99) mg/dl POC Glucose 119 H (70-99) mg/dl Estimat Average Glucose mg/dl Hemoglobin A1c (4.5-5.6) % Calcium 8.7 (8.5-10.1) mg/dl Magnesium 2.6 H (1.8-2.4) mg/dl 02/21/21 Range/Units 08:50 WBC (4.8-10.8) K/uL RBC (4.7-6.1) M/uL Hgb (14.0-18.0) g/dL Hct (42-52) % MCV (80-100) fL MCH (25-34) pg MCHC (32-36) g/dL RDW Std Deviation (36.4-46.3) fL RDW Coeff of Amor (11.5-14.5) % Plt Count (130-400) K/uL MPV (7.4-10.4) fL Immature Gran % (Auto) % Neut % (Auto) % Lymph % (Auto) % [place] % (Auto) % Eos % (Auto) % Baso % (Auto) % Neut # (Auto) (1.4-6.5) K/uL Lymph # (Auto) (1.2-3.4) K/uL [place] # (Auto) (0.11-0.59) K/uL Eos # (Auto) (0-0.5) K/uL Baso # (Auto) (0-0.2) K/uL Immature Gran # (Auto) (0.00-0.02) K/uL Sodium (136-145) mmol/L Potassium (3.5-5.1) mmol/L Chloride (98-107) mmol/L Carbon Dioxide (21-32) mmol/L Anion Gap (3-11) BUN (7-18) mg/dl Creatinine (0.6-1.4) mg/dl Est Cr Clr Drug Dosing ml/min Est GFR ( Amer) ml/min Est GFR (Non-Af Amer) ml/min BUN/Creatinine Ratio (10-20) Glucose (70-99) mg/dl POC Glucose (70-99) mg/dl Estimat Average Glucose 148 mg/dl Hemoglobin A1c 6.8 H (4.5-5.6) % Calcium (8.5-10.1) mg/dl Magnesium (1.8-2.4) mg/dl PG Care Time/CCT Total # of Minutes Spent Total Time Spent with Patient: Total time spent is greater than 50% in coordination of care (as documented) at patient's floor/unit and/or counseling patient: Coding Level of Care Code 81778 Subseq Hosp Care Lvl 3 Diagnoses Weakness R53.1 UTI (urinary tract infection) N39.0 Chronic kidney disease, stage II (mild) N18.2 Dyslipidemia E78.5 T2DM (type 2 diabetes mellitus) E11.9 Benign hypertension I10 Peripheral arterial disease I73.9 Renal cyst N28.1 Obesity E66.9 Sleep apnea G47.30
[2021-02-22] MEDS: TAMSULOSIN HCL 0.4 MG CAP PO SCH (20:14)
[2021-02-22] MEDS: ATORVASTATIN 40 MG TAB PO SCH (20:14)
[2021-02-22] MEDS: ASPIRIN 81 MG ECTAB PO SCH (20:14)
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
[2021-02-22] MEDS ORDERED: LORazepam 0.5 MG TAB PO STA (23:28)
[2021-02-23 06:56] LABS: Basophils # (auto) 0.03 K/uL (0-0.2); Basophils % (auto) 0.5 %; Eosinophils # (auto) 0.31 K/uL (0-0.5); Eosinophils % (auto) 5.1 %; Hematocrit (blood only) 39.4 % (42-52); Hemoglobin 13.2 g/dL (14.0-18.0); Immature Granulocytes # (auto) 0.03 K/uL (0.00-0.02); Immature Granulocytes % (auto) 0.5 %; Lymphocytes # (auto) 1.34 K/uL (1.2-3.4); Lymphocytes % (auto) 22.1 %; Mean Corpuscular Hemoglobin 31.1 pg (25-34); Mean Corpuscular Hgb Conc 33.5 g/dL (32-36); Mean Corpuscular Volume 92.9 fL (80-100); Mean Platelet Volume 9.9 fL (7.4-10.4); Monocytes # (auto) 0.67 K/uL (0.11-0.59); Monocytes % (auto) 11.1 %; Neutrophils # (auto) 3.67 K/uL (1.4-6.5); Neutrophils % (auto) 60.7 %; Platelet Count 263 K/uL (130-400); RDW Coefficient of Variation 13.9 % (11.5-14.5); RDW Standard Deviation 47.3 fL (36.4-46.3); Red Blood Count 4.24 M/uL (4.7-6.1); White Blood Count 6.05 K/uL (4.8-10.8)
[2021-02-23 07:47] LABS: BUN Creatinine Ratio 17.1 (10-20); Calcium 9.1 mg/dl (8.5-10.1); Creatinine Clr Calc Pharmacy 97.1 ml/min; Est GFR (African American) 90.8 ml/min; Est GFR (Non-African American) 78.4 ml/min; Potassium 3.8 mmol/L (3.5-5.1)
[2021-02-23 07:49] VITALS: TEMP 98.4
[2021-02-23] MEDS: LOSARTAN POTASSIUM 25 MG TAB PO SCH (07:54)
[2021-02-23] MEDS: ENOXAPARIN INJ 40 MG/0.4 ML SYR SQ SCH (07:54)
[2021-02-23] MEDS: LOSARTAN POTASSIUM 50 MG TAB PO SCH (07:54)
[2021-02-23] MEDS: METOPROLOL TARTRATE 25 MG TAB PO SCH (07:54)
[2021-02-23] MEDS: INSULIN GLARGINE SOLOSTAR 100 UNITS/ML 3 ML PEN SC SCH (08:38)
[2021-02-23] MEDS: INSULIN ASPART 100 UNITS/ML 3 ML PEN SC SCH ×2 (08:39→12:57)
[2021-02-23] MEDS: cefTRIAXone SODIUM 2,000 MG in DEXTROSE 5% 50 ML IV SCH (09:57)
--- NOTE | 2021-02-23 10:38 | Urology Progress Note ---
Date of Service February 23, 2021 Assessment & Plan (1) Acute UTI: (2) Renal cyst: Plan: 70 yo M admitted for weakness secondary to suspected acute UTI. - Plan of care reviewed with Dr. Felix, urologist cloth sponger. - Afebrile, lab work reviewed - creatinine 0.98, WBC 6.05. - UC&S grew out E. coli, BCx NGTD. On IV Ceftriaxone. - Plan to transition to PO antibiotics upon discharge. - Recommend prolonged antibiotic course - at least 4 weeks with Bactrim or Doxycycline if possible, for suspected prostatitis. - Voiding spontaneously s/p catheter removal - continue to monitor, bladder scan prn. - Recommend continue Flomax. - DC 02/21 noted mid to lower pole cyst of the left kidney to be benign. - Recommend outpatient follow-up with his urologist, Dr. Nowak, for clinical reassessment, monitoring, PSA. Thank you for allowing us to participate in the acute care of Mr. Lara. Please reconsult us with additional questions, concerns or changes in patient status. Admission and Anticipated Discharge Date Admission Date: February 20, 2021 Subjective Pt awake and sitting up in bedside chair. Reports feeling better today. Ambulating in hallway. No abdominal or flank pain. Voiding spontaneously. Feels he is emptying his bladder. No dysuria or hematuria. Tolerating diet. No nausea or vomiting. No fever or chills. Reports his last PSA was about 2 years ago through PCP, within normal limits per his report, but cannot recall value. Follows with Dr. Nowak for history of renal cyst. Chart review: Afebrile, Creatinine 0.98, WBC 6.05, Hgb 13.2, UC&S E. coli. BCx NGTD. On IV Ceftriaxone. PSA 21.500. No additional concerns today. Review of Systems Constitutional: as per Subjective / HPI Gastrointestinal: as per Subjective / HPI Genitourinary: + as per Subjective / HPI Physical Exam Constitutional: well developed, well nourished and + obese; no acute distress and not ill appearing Respiratory: normal respiratory effort and able to speak in complete sentences; no respiratory distress and no labored breathing Cardiovascular: Extremities: no pedal edema Gastrointestinal (Abdomen): Inspection/Auscultation: abdomen normal to inspection; abdomen not distended Musculoskeletal: Head/Neck/Chest: normocephalic and head atraumatic Neurologic: moves all extremities and awake Psychiatric: Orientation: alert and oriented x 3 Results & Data ([facility]) Vital Signs (Past 12 Hours) Vital Signs Temp Pulse Pulse Resp BP BP Pulse Ox 02/23/21 07:48 36.9 C 68 20 164/77 H 93 02/23/21 07:28 83 02/23/21 00:28 64 02/22/21 22:42 36.5 C 68 18 152/80 H 96 PG Care Time/CCT Total # of Minutes Spent Total Time Spent with Patient: Total time spent is greater than 50% in coordination of care (as documented) at patient's floor/unit and/or counseling patient: Coding Level of Care Code 18834 Subseq Hosp Care Lvl 2 Diagnoses Acute UTI N39.0 Renal cyst N28.1
[2021-02-23 11:57] VITALS: O2SAT 95
[2021-02-23 16:24] VITALS: BP 152/80; PULSE 67
--- NOTE | 2021-02-23 16:42 | Discharge Summary ---
Date of Service February 23, 2021 Admission HPI Per Admitting Provider Servando Lara is a pleasant 70yo male with history of DM, HTN, HLP presenting with weakness and fatigue that began yesterday 02/19/21 around 18:00. Patient has been having some dysuria over the last several days. Last evening he became weak. He was unable to get up from the couch and unable to ambulate without assistance. He denies fever, chills, flank pain, abdominal pain, vomiting, diarrhea, constipation. He had some nausea en route to [facility] but presently with none also with occasional sweats. No additional complaints. ER Course: Ceftriaxone 2gm, NSS Principal Diagnosis UTI, Acute metabolic encephalopathy, Acute prostatitis Discharge Exam Constitutional WD/WN, vitals as above Eyes + anicteric sclerae ENMT external ear and nose normal, oropharynx normal Neck trachea midline, no thyromegaly Respiratory normal respiratory effort, lungs clear to auscultation Cardiovascular RRR, no murmur, no edema Chest (Breasts) Chest: normal inspection of chest Gastrointestinal (Abdomen) normal bowel sounds, soft, nontender, no hepatosplenomegaly Musculoskeletal Extremities: extremities normal to inspection; no cyanosis and no clubbing Skin no rashes, warm and dry Neurologic moves all extremities and awake; no focal motor deficits Psychiatric A+Ox3, euthymic affect Lymphatic no lymphedema Discharge Data Allergies Allergy/AdvReac Type Severity Reaction Status Date / Time bacitracin AdvReac Unknown Rash Verified 02/20/21 03:08 [From Neosporin ([id number])] levofloxacin [From Levaquin] AdvReac Unknown Unknown Verified 02/20/21 03:08 neomycin AdvReac Unknown Rash Verified 02/20/21 03:08 [From Neosporin ([id number])] polymyxin B AdvReac Unknown Rash Verified 02/20/21 03:08 [From Neosporin ([id number])] Consultations 02/20/21 05:21 ED Decision to Admit Stat 02/22/21 17:10 Burn CD for patient Routine Consult Urology Routine Ordered Studies 02/20/21 13:38 CT abd pelvis wo con Routine 02/20/21 17:55 CT head/brain wo con Stat 02/21/21 09:29 US renal/blad retro comp Routine Chest X-Ray 02/20/21 01:57 XR chest 1V portable CLINICAL HISTORY: weakness COMPARISON STUDY: Chest radiograph March 06, 2017. FINDINGS: There is moderate elevation of left hemidiaphragm. This is mildly increased. Left basilar opacity favors atelectasis. Cardiomediastinal silhouette is stable allowing for mild patient rotation. There is no pneumothorax or pleural effusion. There is pulmonary vascular congestion. IMPRESSION: 1. Elevation of the left hemidiaphragm with left basilar opacity that favors atelectasis. 2. Pulmonary vascular congestion without overt pulmonary edema. ACT 112: Negative or not required by law. Electronically signed by: Jaya Beasley M.D. 02/20/2021 7:46 AM Abdomen/Pelvis CT 02/20/21 13:38 CT OF THE ABDOMEN AND PELVIS WITHOUT CONTRAST CLINICAL HISTORY: ? Obstructive uropathy COMPARISON STUDY: CT of the abdomen and pelvis December 21, 2009. Renal ultrasound August 21, 2017. TECHNIQUE: Axial images of the abdomen and pelvis were obtained without IV contrast. Images were reviewed in the axial, sagittal, and coronal planes. Automated exposure control was utilized for the study. A dose lowering technique was utilized adhering to the principles of ALARA. FINDINGS: No pneumatosis, free air or portal venous gas is present. The right kidney is markedly atrophic. This is unchanged. There is compensatory hypertrophy of the left kidney. There is mild left perinephric stranding. There are left-sided parapelvic cysts. A water attenuation lesion within the lower pole of the left kidney measuring 2 cm favors a cyst. This is suboptimally assessed on this unenhanced exam. There is a 2.2 cm lesion within the midpole of the left kidney which measures just above water attenuation. This is shown on axial image 189 of 511. There are cysts several small left renal calculi that measure up to 2 mm. There are no ureteral calculi. There is no hydronephrosis. There is no evidence for a bowel obstruction. Colonic diverticulosis is noted without evidence for acute diverticulitis. Prostate is moderately enlarged. Bladder wall thickening is noted. Sherman balloon within the bladder is noted. There is mild adjacent infiltration. No acute fracture or suspicious lesion is identified within the visualized skeletal structures. There is hepatic steatosis. IMPRESSION: 1. Left-sided nephrolithiasis. No ureteral calculi or hydronephrosis. Left-sided parapelvic cysts. 2. Atrophic right kidney. Compensatory hypertrophy of the left kidney with left perinephric stranding, a nonspecific finding. 3. Bladder wall thickening with adjacent infiltration which could be correlated with urinalysis. Moderately enlarged prostate. 4. 2.2 cm lesion within the lateral cortex of the midpole of the left kidney. This probably reflects a cyst however this measures above water attenuation and a renal ultrasound is recommended for confirmation. ACT 112: Negative or not required by law. Electronically signed by: Jaya Beasley M.D. 02/20/2021 2:[address] 02/20/21 17:55 CT OF THE HEAD WITHOUT CONTRAST CLINICAL HISTORY: r/o CVA- AMS COMPARISON STUDY: No previous studies for comparison. CT DOSE: 2342.54 mGy.cm TECHNIQUE: Helical axial images of the head were obtained without IV contrast. Automated exposure control was utilized for the study. A dose lowering technique was utilized adhering to the principles of ALARA. FINDINGS: No acute intracranial hemorrhage, midline shift or mass effect is present. There is moderate dilatation of the lateral ventricles and the third ventricle. White matter hypodensity suggests small vessel disease. There are no findings to suggest acute dural sinus thrombosis or acute territorial infarct. 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 Mucous retention cyst within the left maxillary sinus is noted. No acute calvarial fracture. Minimal ethmoid sinus mucosal thickening is present. IMPRESSION: 1. No acute intracranial hemorrhage. 2. Moderate ventricular dilatation. This is likely due to atrophy although normal pressure hydrocephalus could appear similar. 3. White matter hypodensities suggestive of small vessel disease. ACT 112: Negative or not required by law. Electronically signed by: Jaya Beasley M.D. 02/20/2021 6:41 PM Renal Ultrasound 02/21/21 09:29 RENAL ULTRASOUND CLINICAL HISTORY: abnl CT- ? left sided lesion/setting of uti COMPARISON STUDY: CT of the abdomen pelvis February 20, 2021. TECHNIQUE: Sonography of the kidneys and the urinary bladder was performed. FINDINGS: Right kidney was not visualized given marked atrophy. The left kidney measures 16.4 x 9.1 x 7.9 cm. There is no left hydronephrosis. Multiple left- sided parapelvic cysts are noted. 2.1 cm anechoic lesion within the lateral cortex of the mid to lower pole of the left kidney corresponds to the indeterminate lesion by CT. This represents a cyst. The other suspected renal cyst shown by CT is not evident by sonography. Sherman balloon within the bladder is noted. The bladder is collapsed. IMPRESSION: 1. No left hydronephrosis. 2. 2.1 cm cyst within the lateral cortex of the mid to lower pole of the left kidney which corresponds to the lesion in question on CT of February 20, 2021. This is benign. ACT 112: Negative or not required by law. Electronically signed by: Jaya Beasley M.D. 02/21/2021 1:07 PM Hospital Course (1) Weakness: 70yo male presents with 1 day of generalized weakness, inability to get off the couch and ambulate. Symptoms accompanied by dysuria. Urinalysis suggestive of infection. Patient afebrile, hypertensive. HR of 97. WBC elevated at 16.9 Initially was unable to even sit up in bed for the first 24 to 36 hours of admission but this rapidly improved and he was ambulating halls independently prior to discharge -Secondary to acute prostatitis and UTI -Antibiotics as below (2) UTI (urinary tract infection): Acute prostatitis-with evidence of UTI, moderately enlarged prostate on CT scan, bladder wall thickening, fever, tachycardia and sepsis on admission - patient with symptoms of retention requiring sherman--> likely secondary to associated prostatitis and prostate enlargement on imaging - added flomax and discontinued on 02/22 and passed trial of void -PSA is elevated at 21-could be secondary to acute prostatitis and Sherman catheter placement, but will need to be followed as an outpatient Urine culture with E. coli resistant to ampicillin and ampicillin/sulbactam -We will treat for 14 days with Bactrim DS to complete 4 week course Appreciate urology input on enlarged prostate, urinary retention, follow-up on elevated PSA, and renal cyst--> Urology here recommends pt f/u with his primary Urologist, Dr. Fran Nowak, in [place] (3) Chronic kidney disease, stage II (mild): -Patient with CKD - single functioning kidney. -At baseline renal function here Follows with nephrology check BMP in 1 week while on Bactrim to ensure remains normal (4) Dyslipidemia: Chronic -Continue Atorvastatin 40mg HS (5) T2DM (type 2 diabetes mellitus): Blood glucose has been elevated here but is now improving Hemoglobin A1c well controlled at 6.8% continue home Victoza-held while inpatient Continue insulin -Glipizide and Metformin restart on discharge (6) Benign hypertension: Blood pressures here are mildly elevated to normal -Continue Losartan 75 mg daily -Continue Metoprolol (7) Peripheral arterial disease: Chronic. Stable -Continue ASA 81mg po daily -Continue Atorvastatin (8) Renal cyst: h/o RCC left kidney with resection burn CD for patient to take to his Urologist at follow-up appointment-Dr. Fran Nowak in [place] although it appears the lesion seen on CT scan was confirmed to be a cyst on ultrasound some most likely benign (9) Obesity: BMI 44.0 Needs weight loss-discussed with him (10) Sleep apnea: Continue CPAP nightly Lovenox for DVt prophylaxis Disposition-dc to home Total Time Total Time Spent Total Time Spent (In Minutes): 35 min Discharge Plan Discharge Items Patient Disposition: Home - Self-Care Reason For Visit: WEAKNESS, DYSURIA Discharge Diagnosis: Acute prostatitis, UTI Condition on Discharge: Good Activity: Resume your previous activity Non-emergency contact: Primary Care Provider and Urologist Call non-emergency contact if: you have any medication questions, your symptoms worsen and you have a fever Follow-up/Referrals: Shireen Yan MD [Primary Care Provider] - (Follow up within 1-2 weeks.) Diet: Carb Consistent or DM2 and Heart Healthy Addtl Attending Provider Instructions: Please continue the antibiotic (Bactrim DS) twice a day for 3.5 more weeks for your prostate infection. Continue the Flomax once daily at bedtime for enlarged prostate. Your PSA blood test was elevated, but could have been falsely elevated due to your infection and the Sherman catheter placement. Please have Dr. Yan check your kidney function with blood work in one week to make sure it is still good. Follow up with your Urologist, Dr. Nowak, within 1 month. Pending Studies at Discharge: Yes Stand-Alone Forms: My [facility] Medications and DC Order Prescriptions: New tamsulosin 0.4 mg Capsule 0.4 mg PO HS Qty: 30 RF: 0 sulfamethoxazole-trimethoprim [Bactrim DS] 800-160 mg tablet 1 tab PO BID Qty: 48 RF: 0 Continued (DME) OneTouch Ultra Blue Test Strip Strip See Rx Instructions .ROUTE .MEDSUPPLY Qty: 300 RF: 3 (DME) pen needle, diabetic [BD Ultra-Fine Zahra Pen Needle] 32 gauge x 5/32" needle See Rx Instructions .ROUTE .MEDSUPPLY Qty: 200 RF: 3 Basaglar KwikPen U-100 Insulin 100 unit/mL (3 mL) insulin pen 75 unit subcut HS 90 Days Qty: 75 RF: 1 metformin 500 mg tablet extended release 24 hr 1,000 mg PO BID Qty: 360 RF: 1 losartan 25 mg tablet 25 mg PO QAM Qty: 90 RF: 3 losartan 50 mg tablet 50 mg PO QAM Qty: 90 RF: 3 Victoza 3-Frandy 0.6 mg/0.1 mL (18 mg/3 mL) pen injector 1.8 mg subcut QAM 90 Days Qty: 27 RF: 1 glipizide 10 mg tablet 10 mg PO BID Qty: 180 RF: 1 aspirin [Aspir-81] 81 mg Tablet,Delayed Release (Dr/Ec) 81 mg PO HS RF: 0 cholecalciferol (vitamin D3) [Vitamin D3] 1,000 unit Capsule 1,000 unit PO HS RF: 0 metoprolol tartrate 25 mg tablet 25 mg PO BID RF: 0 atorvastatin 40 mg tablet 40 mg PO HS RF: 0 cyanocobalamin (vitamin B-12) [Vitamin B-12] 1,000 mcg tablet 1,000 mcg PO HS RF: 0 [id number] [krill oil] 1,027-415-68-80 mg Capsule 1 cap PO QAM RF: 0 Discharge Orders: Discharge Order (Routine); Ordered 02/23/21 Ordered By: Temi Sawant/Other Patient Handouts: A1C, Managing Type 2 Diabetes Admission Data Admit Date/Time: 02/20/21 05:55 Attending Provider: Temi Young Admit Provider: Anna Curtis Primary Care Provider: Shireen Yan Other Providers: Anna Curtis ; Jordan Felix Other Interventions: Discharge Summary Assessment (RN) Last Done: 02/23/21 16:21 Coding Level of Care Code D/C DAY MANAGEMENT >30 MINS Diagnoses Weakness R53.1 UTI (urinary tract infection) N39.0 Chronic kidney disease, stage II (mild) N18.2 Dyslipidemia E78.5 T2DM (type 2 diabetes mellitus) E11.9 Benign hypertension I10 Peripheral arterial disease I73.9 Renal cyst N28.1 Obesity E66.9 Sleep apnea G47.30
== END 2021-02-23 17:16 | disposition home or self-care (01) | DRG 727 ==
LOC: ED 01:40 → 3W 05:55 → SUATTDRO 05:55 → 3W 06:34 → 2N 17:57

== ENCOUNTER 2024-05-27 06:32 | Inpatient (IN) ==
[2024-05-27] MEDS ORDERED: CEFEPIME 2,000 MG in SYRINGE 7.5 ML IV STA (06:48)
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
[2024-05-27 07:13] LABS: Basophils # (auto) 0.04 K/uL (0.00-0.20); Basophils % (auto) 0.3 %; Eosinophils # (auto) 0.04 K/uL (0.00-0.50); Eosinophils % (auto) 0.3 %; Hematocrit (blood only) 38.4 % (42.0-52.0); Immature Granulocytes # (auto) 0.15 K/uL (0.01-0.20); Lymphocytes # (auto) 0.52 K/uL (1.20-3.40); Lymphocytes % (auto) 3.6 %; Mean Corpuscular Hemoglobin 31.1 pg (25.0-34.0); Mean Corpuscular Hgb Conc 33.9 g/dL (32.0-36.0); Mean Corpuscular Volume 91.9 fL (80.0-100.0); Mean Platelet Volume 10.2 fL (9.4-12.4); Monocytes # (auto) 1.25 K/uL (0.11-0.59); Monocytes % (auto) 8.6 %; Neutrophils % (auto) 86.2 %; Platelet Count 176 K/uL (130-400); RDW Coefficient of Variation 14.1 % (11.5-14.5); RDW Standard Deviation 47.3 fL (36.4-46.3); Red Blood Count 4.18 M/uL (4.70-6.10)
[2024-05-27] MEDS: SODIUM CHLORIDE 0.9% 1,000 ML IV ONE (07:23)
[2024-05-27 07:28] LABS: Albumin Globulin Ratio 1.4 (0.9-2); BUN Creatinine Ratio 15.7 (10-20); Bilirubin,Total 0.9 mg/dl (0.2-1.0); Calcium 9.4 mg/dl (8.6-10.3); Creatinine Clr Calc Pharmacy 69.2 ml/min; Globulin 2.9 gm/dl (2.5-4.0); Magnesium 1.8 mg/dl (1.7-2.4); Potassium 4.3 mmol/L (3.5-5.1); Total Protein 6.9 gm/dl (6.0-8.3)
[2024-05-27] MEDS: ACETAMINOPHEN 1,000 MG/100 ML VIAL IV STA (07:32)
[2024-05-27 07:34] LABS: Troponin I High Sensitivity 14.8 pg/ml (0-20)
--- NOTE | 2024-05-27 07:37 | XRay Report ---
XR chest 1V portable HISTORY: 73 years-old Male weakness COMPARISON: 02/20/2021 TECHNIQUE: AP view of the chest FINDINGS: Cardiac silhouette is enlarged. Pulmonary vascular congestion with interstitial coarsening. No pneumo thorax or pleural effusion. Mild bibasilar subsegmental densities. Bones appear grossly intact. Uncha nged left hemidiaphragmatic elevation. IMPRESSION: 1. Cardiomegaly with pulmonary vascular congestion. 2. Subsegmental bibasilar atelectasis versus scarring. ACT 112: Negative or not required by law. The above report was generated using voice recognition software. It may contain grammatical, syntax o r spelling errors. Electronically signed by: Chetan Bautista M.D. 05/27/2024 7:36 AM
[2024-05-27 07:43] LABS: Thyroid Stimulating Hormone 2.641 uIu/ml (0.300-4.500)
[2024-05-27 07:49] LABS: Influenza A virus by PCR Negative (Neg); Influenza B virus by PCR Negative (Neg); RSV by PCR Negative (Neg); SARS CoV2 RNA(COVID-19) Ceph NEGATIVE (Negative)
[2024-05-27] MEDS: CEFEPIME 2,000 MG in SYRINGE 0 ML IV STA (07:50)
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
--- NOTE | 2024-05-27 10:15 | CT Scan Report ---
CT OF THE ABDOMEN AND PELVIS WITHOUT CONTRAST CLINICAL HISTORY: Abdominal pain, h/o renal calculi. COMPARISON STUDY: CT of the abdomen and pelvis February 20, 2021. Renal ultrasound July 26, 2022. TECHNIQUE: Axial images of the abdomen and pelvis were obtained without IV contrast. Images were revi ewed in the axial, sagittal, and coronal planes. Automated exposure control was utilized for the sharon dy. A dose lowering technique was utilized adhering to the principles of ALARA. FINDINGS: No pneumatosis, free air or portal venous gas is present. Small calcifications within the l eft renal sinus measuring up to 4 mm. These could reflect nonobstructing calculi or vascular calcific ations. There are no ureteral calculi. There is no hydronephrosis. Mild left perinephric stranding duffy s slightly decreased when compared to CT of February 20, 2021. There are left-sided parapelvic cysts. Lef t renal lesions were shown to represent cysts on prior ultrasound of July 26, 2022. As before, th e right kidney is markedly atrophic. Evaluation of the remainder of the abdomen and pelvis is subopti mal on this unenhanced exam. Liver, spleen, adrenal glands and pancreas are unremarkable. The appendi x is normal. There is no evidence for a bowel obstruction. Colonic diverticulosis is present. No evid ence for acute diverticulitis. Subtle stranding adjacent to the prostate appears similar to prior exa m. IMPRESSION: 1. Several small calcifications within the left renal sinus which measure up to 4 mm. These could ref lect nonobstructing calculi or vascular calcifications. No ureteral calculi. No hydronephrosis. 2. Mild left perinephric stranding, a nonspecific finding, decreased when compared to prior CT. 3. Atrophic right kidney, unchanged. 4. No bowel obstruction. No bowel wall thickening on unenhanced exam. ACT 112: Negative or not required by law. Electronically signed by: Jaya Beasley M.D. 05/27/2024 10:14 AM
[2024-05-27] MEDS: FUROSEMIDE 20 MG TAB PO ONE (10:43)
[2024-05-27] MEDS: METOPROLOL TARTRATE 25 MG TAB PO ONE (10:43)
[2024-05-27] MEDS: ROSUVASTATIN CALCIUM 20 MG TAB PO ONE (10:43)
[2024-05-27] MEDS ORDERED: GLUCOSE 10 TAB/TUBE PO PRN (11:39)
[2024-05-27] MEDS ORDERED: GLUCAGON FOR INJ 1 MG VIAL SQ PRN (11:39)
[2024-05-27] MEDS ORDERED: CARBOHYDRATES FOR HYPOGLYCEMIA PO PRN (11:39)
[2024-05-27] MEDS ORDERED: ACETAMINOPHEN 325 MG TAB PO PRN (11:39)
[2024-05-27] MEDS ORDERED: ONDANSETRON INJ 2 MG/ML 2 ML VIAL IV PRN (11:39)
[2024-05-27] MEDS ORDERED: GLUCOSE 40% GEL 15 GM TUBE PO PRN (11:39)
[2024-05-27] MEDS ORDERED: DEXTROSE 50% 50 ML SYRINGE IV PRN (11:39)
[2024-05-27] MEDS ORDERED: POLYETHYLENE (MIRALAX) 17 GM PACK PO PRN (11:39)
[2024-05-27 12:19] LABS: Appearance Urine Cloudy (Clear); Bacteria Urine Automated None Seen (None Seen); Bilirubin Urine Negative (Negative); Blood Urine Negative (Negative); Color Urine Yellow; Glucose Urine UA Negative (Negative); Granular Casts Urine Present /lpf (None Prsent); Ketones Urine Trace (Negative); Leukocyte Esterase Urine 2+ (Negative); Nitrite Urine Negative (Negative); Protein Urine 2+ (Negative); RBC Urine Automated 0-2 /hpf (0-2); Specific Gravity Urine 1.019 (1.000-1.030); Urobilinogen Urine Negative (Negative); WBC Urine Automated >50 /hpf (0-5); pH Urine 5.5 (4.5-7.5)
[2024-05-27 12:25] LABS: Cast Urine Automated 0-2 /lpf (0-2)
--- NOTE | 2024-05-27 12:51 | Electrocardiogram Report ---
Test Reason : Blood Pressure : */* mmHG Vent. Rate : 109 BPM Atrial Rate : 109 BPM P-R Int : 168 ms QRS Dur : 86 ms QT Int : 326 ms P-R-T Axes : 35 -7 99 degrees QTcB Int : 439 ms Sinus tachycardia with occasional Premature ventricular complexes Possible Inferior infarct (cited on or before 20-Feb-2021) Abnormal ECG When compared with ECG of 20-Feb-2021 01:48, Premature ventricular complexes are now Present Confirmed by Amado Rojas ([id number]) on 05/27/2024 12:50:55 PM Referred By: REFERRED SELF Confirmed By: Amado Rojas
[2024-05-27] MEDS: INSULIN ASPART PER UNIT CHARGE SC SCH (13:36)
[2024-05-27] MEDS: PANTOprazole 40 MG TAB PO STA (14:18)
[2024-05-27] MEDS: SUCRALFATE 1 GM/10 ML UDC PO ONE (14:19)
[2024-05-27] MEDS: CEFEPIME 2000MG 2,000 MG/20 ML SYR IV SCH (15:31)
[2024-05-27] MEDS: ASPIRIN 81 MG ECTAB PO SCH (19:27)
[2024-05-27] MEDS: ENOXAPARIN INJ 40 MG/0.4 ML SYR SQ SCH (19:27)
[2024-05-27] MEDS: FUROSEMIDE 20 MG TAB PO SCH (19:27)
[2024-05-27] MEDS: METOPROLOL TARTRATE 25 MG TAB PO SCH (19:33)
[2024-05-27] MEDS: LANTUS PER UNIT CHARGE SQ SCH (21:21)
[2024-05-28] MEDS: ROSUVASTATIN CALCIUM 20 MG TAB PO SCH (07:52)
[2024-05-28] MEDS: LOSARTAN POTASSIUM 50 MG TAB PO SCH (07:52)
[2024-05-28] MEDS: PANTOprazole 40 MG TAB PO SCH (07:54)
[2024-05-28 08:08] LABS: BUN Creatinine Ratio 13.6 (10-20); Calcium 9.3 mg/dl (8.6-10.3); Creatinine Clr Calc Pharmacy 60.2 ml/min; Potassium 4.1 mmol/L (3.5-5.1)
[2024-05-28 08:29] LABS: Basophils # (auto) 0.04 K/uL (0.00-0.20); Basophils % (auto) 0.3 %; Eosinophils # (auto) 0.24 K/uL (0.00-0.50); Eosinophils % (auto) 2.1 %; Hematocrit (blood only) 35.9 % (42.0-52.0); Hemoglobin 12.1 g/dl (14.0-18.0); Immature Granulocytes # (auto) 0.17 K/uL (0.01-0.20); Immature Granulocytes % (auto) 1.5 %; Lymphocytes # (auto) 1.02 K/uL (1.20-3.40); Lymphocytes % (auto) 8.7 %; Mean Corpuscular Hemoglobin 31.2 pg (25.0-34.0); Mean Corpuscular Hgb Conc 33.7 g/dL (32.0-36.0); Mean Corpuscular Volume 92.5 fL (80.0-100.0); Mean Platelet Volume 10.4 fL (9.4-12.4); Monocytes # (auto) 1.22 K/uL (0.11-0.59); Monocytes % (auto) 10.4 %; Platelet Count 162 K/uL (130-400); RDW Coefficient of Variation 14.4 % (11.5-14.5); RDW Standard Deviation 48.4 fL (36.4-46.3); Red Blood Count 3.88 M/uL (4.70-6.10); White Blood Count 11.69 K/ul (4.8-10.8)
[2024-05-28 15:03] LABS: Bilirubin Direct 0.1 mg/dl (0-0.2); Bilirubin,Total 0.6 mg/dl (0.2-1.0); Total Protein 7.1 gm/dl (6.0-8.3)
[2024-05-28 15:15] LABS: Prothrombin Time 10.7 Seconds (9.0-12.0)
--- NOTE | 2024-05-28 16:23 | Hospitalist Progress Note ---
Date of Service May 28, 2024 Assessment & Plan (1) Weakness: Plan: 73 y/o M PMHx renal cyst, CKD stage II, renal cell carcinoma (2003), L partial nephrectomy presenting for new onset weakness and discomfort with urination. admitted with urinary tract infection reviewed CT abdomen and pelvis from yesterdaynotable for atrophic right kidney, small calcification within left renal sinus up to 4 mm either nonobstructing calculi or vascular calcifications, no ureteral calculi or hydronephrosis, mild left perinephric stranding decreased compared to previous CT continue cefepime pending urine culture leukocytosis improved to 11.7 generalized weakness and dysuria persist but both improve likely home tomorrow with home health PT and OT (2) Diabetic ulcer of right great toe: Plan: R great toe, present since January 2024; has recently completed course of Augmentin for wound - 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 - Most recent diabetic visit 04/2024 - reviewed photos no evidence of acute infection (3) T2DM (type 2 diabetes mellitus): Plan: Most recent diabetes visit 05/07/2024 - A1c 6.6% (05/02/2024) - SSI with target BSG range 110-140mg/dL, CF 20, carb ratio 7 - DMT2 diet - BSG's ACHS - Hold glipizide and metformin - Insulin glargine 60 units daily at home - Weekly Ozempic injections on Wednesdays - Adjust regimen as needed blood glucose at goal 05/28 (4) Morbid obesity with BMI of 40.0-44.9, adult: Plan: BMI 43 Plan H&P lists acute metabolic encephalopathy as a diagnosis, however, I reviewed the H&P and ED presenting note and I see no evidence of metabolic encephalopathy. Mentation is normal today he is oriented x 4 HTN- continue metoprolol tartrate and losartan Lasix twice daily, continue HLD- continue rosuvastatin Dispo: Admit VTE prophylaxis: Lovenox Code: Full Admission and Anticipated Discharge Date Admission Date: May 27, 2024 Subjective remains weaker than baseline but improved dysuria improved though still present walked with PT and OT with walker Physical Exam 2 Physical Exam: PHYSICAL EXAMINATION Last 24h vital signs reviewed, see documentation in flowsheet General: comfortable appearing, no distress, sitting up on edge of the bed HEENT: left eyelid ptosis, sclerae anicteric, no conjunctival injection, moist mucus membranes Lungs: Normal respiratory Heart: deferred Abdomen: soft nondistended Extremities: Warm, dry, well-perfused. mild lower extremity edema. Neuro: Alert and oriented x 4, face symmetric, moves 4 extremities well Psych: Normal affect and behavior Results & Data Results & Data Vital Signs (Past 12 Hours) Vital Signs Temp Pulse Resp BP Pulse Ox O2 Del Method 05/28/24 15:09 36.4 C L 68 14 124/63 96 Room Air 05/28/24 11:44 36.9 C 86 14 111/64 97 Room Air 05/28/24 07:55 CPAP 05/28/24 07:33 36.8 C 86 16 150/68 H 92 Room Air Laboratory Results 05/28/24 07:15 05/28/24 07:15 PG Care Time/CCT Total # of Minutes Spent Total Time Spent with Patient: Total time spent is greater than 50% in coordination of care (as documented) at patient's floor/unit and/or counseling patient: Coding Level of Care Code 78185 SUB INP/OBS CARE 2/35MIN Diagnoses Weakness R53.1 Diabetic ulcer of right great toe E11.621; L97.519 T2DM (type 2 diabetes mellitus) E11.9 Morbid obesity with BMI of 40.0-44.9, adult E66.01; Z68.41
[2024-05-29 07:18] LABS: Basophils # (auto) 0.05 K/uL (0.00-0.20); Basophils % (auto) 0.6 %; Eosinophils # (auto) 0.36 K/uL (0.00-0.50); Eosinophils % (auto) 4.5 %; Hematocrit (blood only) 36.5 % (42.0-52.0); Hemoglobin 12.3 g/dl (14.0-18.0); Immature Granulocytes # (auto) 0.05 K/uL (0.01-0.20); Immature Granulocytes % (auto) 0.6 %; Lymphocytes # (auto) 1.22 K/uL (1.20-3.40); Lymphocytes % (auto) 15.3 %; Mean Corpuscular Hemoglobin 30.8 pg (25.0-34.0); Mean Corpuscular Hgb Conc 33.7 g/dL (32.0-36.0); Mean Corpuscular Volume 91.5 fL (80.0-100.0); Mean Platelet Volume 10.1 fL (9.4-12.4); Monocytes # (auto) 0.96 K/uL (0.11-0.59); Neutrophils # (auto) 5.33 K/uL (1.40-6.50); Platelet Count 188 K/uL (130-400); RDW Standard Deviation 47.2 fL (36.4-46.3); Red Blood Count 3.99 M/uL (4.70-6.10); White Blood Count 7.97 K/ul (4.8-10.8)
[2024-05-29 07:28] VITALS: PULSE 64; RESP 18; TEMP 97.5; O2SAT 96
[2024-05-29 07:30] LABS: BUN Creatinine Ratio 16.7 (10-20); Calcium 9.5 mg/dl (8.6-10.3); Creatinine Clr Calc Pharmacy 48.3 ml/min; Potassium 3.8 mmol/L (3.5-5.1)
[2024-05-29] MEDS: SODIUM CHLORIDE 0.9% 500 ML IV ONE (10:04)
[2024-05-29] MEDS: cephALEXin 500 MG CAP PO SCH (10:15)
[2024-05-29 14:03] VITALS: BP 123/70
--- NOTE | 2024-05-29 18:38 | Discharge Summary ---
Discharge Summary Date of Service May 29, 2024 Principal Dx & Hospital Course #1 = Principal Diagnosis (1) Weakness: 73 y/o M PMHx renal cyst, CKD stage II, renal cell carcinoma (2003), L partial nephrectomy presenting for new onset weakness and discomfort with urination. admitted with urinary tract infection UA with 2+LE and >50 WBC, also some granular casts reviewed CT abdomen and pelvis from yesterdaynotable for atrophic right kidney, small calcification within left renal sinus up to 4 mm either nonobstructing calculi or vascular calcifications, no ureteral calculi or hydronephrosis, mild left perinephric stranding decreased compared to previous CT treated with cefepime changed to keflex on discharge leukocytosis resolved, generalized weakness improved, dysuria 90% resolved -urine culture finalized no growth but symptoms were characteristic of UTI (2) GREGORIO (acute kidney injury): Mild GREGORIO on CKD-[address] 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 there were some granular casts on admitting UA. normal UOP -arranged short term primary care follow up for repeat BMP -hold ARB until repeat labs, can resume if Cr returned to baseline -follow up with Dr. 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 Mentation is normal today he is oriented x 4 HTN- continue metoprolol tartrate and losartan temporarily held for GREGORIO Lasix twice daily, continue HLD- continue rosuvastatin Notes For Next Care Provider ARB held - please check BMP and resume ARB if Cr back in baseline range Medication Changes From Visit keflex ARB held Admission HPI Per Admitting Provider Patient is a 73-year-old male presenting to the ED via ambulance for weakness x 24 hours. Noticed discomfort while urinating, has history of UTI requiring admission (02/20/2021). ED course: CBC-WBC 14.5 with L shift, H&H 13/38.4; CMP grossly WNL, creatinine near baseline (1.1) at 1.34, CrCl 69.2, glucose 209; CXR cardiomegaly with vascular congestion, subsegmental bibasilar atelectasis versus scarring. Provided with cefepime 2 g IV and 1 L NSS in ED. 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 States that he was at the [facility] the [facility] (05/25) and did not drink enough fluids, and began to feel worn out at the end of the day. Weakness began late Monday night into Monday morning and he also began to experience "jabbing" pain when he would urinate. Was experiencing LLQ abdominal pain briefly, that has resolved. Fever Monday night, Tmax 100.4, has not recurred. provided him with 2 doses of leftover Doxycycline. Denies chills, N/V/D/C, ongoing abdominal pain, urinary frequency, urinary retention, chest pain, shortness of breath, numbness/tingling, headaches, vision changes. Discharge Exam PHYSICAL EXAMINATION Last 24h vital signs reviewed, see documentation in flowsheet General: comfortable appearing, no distress, sitting up on edge of the bed HEENT: left eyelid ptosis, sclerae anicteric, no conjunctival injection, moist mucus membranes Lungs: CTAB no rrw Heart: reg no mrg Abdomen: soft nondistended Extremities: Warm, dry, well-perfused. mild 1+ lower extremity edema. 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 This is related to the infection -we gave some IV fluids today -don't take your furosemide (AKA lasix / water pill) today. You can restart it tomorrow -HOLD the losartan until you follow up with your doctor. If your labs are good, your doctor can restart the losartan home health PT will help you recover your strength and endurance follow up with Dr. Yan's office within a week and have your labs checked for kidney function It was a pleasure taking care of you in the hospital, Kathy Wei MD Pending Studies at Discharge: Yes (urine culture) Stand-Alone Forms: My [facility], Smoking Cessation Medications and DC Order Prescriptions: New cephalexin 500 mg Capsule 500 mg PO BID Qty: 11 0RF Continued (DME) OneTouch Ultra Test Strip See Rx Instructions .Route Qty: 300 3RF Rx Instructions: Test 3 times a day furosemide 20 mg tablet 20 mg PO BID Qty: 180 3RF Rx Instructions: Take one tablet twice daily (DME) pen needle, diabetic [BD Ultra-Fine Zahra Pen Needle] 32 gauge x 5/32" needle See Rx Instructions .ROUTE .MEDSUPPLY Qty: 200 3RF Rx Instructions: use 2 needles daily rosuvastatin 40 mg tablet 40 mg PO DAILY Qty: 90 1RF semaglutide 2 mg/dose (8 mg/3 mL) pen injector 2 mg subcut .weekly 90 Days Qty: 9 1RF Rx Instructions: Takes wednesdays insulin glargine [Basaglar KwikPen U-100 Insulin] 100 unit/mL (3 mL) insulin pen 68 unit subcut HS Qty: 75 3RF metformin 500 mg tablet extended release 24 hr 500 mg PO BID 90 Days Qty: 180 1RF glipizide 10 mg tablet 10 mg PO BID Qty: 180 3RF magnesium 250 mg tablet 250 mg PO DAILY niacin 500 mg tablet 1,500 mg PO DAILY aspirin [Aspir-81] 81 mg Tablet,Delayed Release (Dr/Ec) 81 mg PO HS metoprolol tartrate 25 mg tablet 25 mg PO BID cyanocobalamin (vitamin B-12) [Vitamin B-12] 1,000 mcg tablet 1,000 mcg PO HS Patient Comments: Patient unsure of dosage [id number] [krill oil] [id number],389-853-91-80 mg Capsule 1 cap PO QAM Held losartan 100 mg tablet 100 mg PO HS Hold Instructions: Resume on 06/05/24. hold until resumed by your doctor Discharge Orders: Discharge Order (Routine); Ordered 05/29/24 Ordered By: Kathy Sawant/Other Patient Handouts: Urinary Tract Infections in Men Admission Data Admit Date/Time: 05/27/24 09:07 Attending Provider: Kathy Wei Admit Provider: Mike Beltran Primary Care Provider: Shireen Yan Other Providers: Mike Beltran; [facility]; [facility] Other Interventions: Discharge Summary Assessment (RN) Last Done: 05/29/24 14:01 Hospital Stay Data Consultations 05/27/24 08:12 ED Decision to Admit Stat Diagnostic Imagining Performed 05/27/24 09:34 CT stones [CT abd pelvis wo con] Stat Pending Results Patient Have Any Pending Studies at Discharge: Yes (urine culture) Discharge Instructions Given to Patient (Per Discharging Provider) You were treated for urinary tract infection This was a milder case than in 2020 -continue cephalexin - antibiotic, until it runs out -I will call you if your urine culture grows something resistant and we need to change antibiotics Your kidney function is a little worse than usual. This is related to the infection -we gave some IV fluids today -don't take your furosemide (AKA lasix / water pill) today. You can restart it tomorrow -HOLD the losartan until you follow up with your doctor. If your labs are good, your doctor can restart the losartan home health PT will help you recover your strength and endurance follow up with Dr. Yan's office within a week and have your labs checked for kidney function It was a pleasure taking care of you in the hospital, Kathy Wei MD Total Time Total Time Spent Total Time Spent (In Minutes): <30 Coding Level of Care Code 15967 IN/OBS DISCH 30 MIN/LESS Diagnoses Weakness R53.1 GREGORIO (acute kidney injury) N17.9 Diabetic ulcer of right great toe E11.621; L97.519 T2DM (type 2 diabetes mellitus) E11.9 Morbid obesity with BMI of 40.0-44.9, adult E66.01; Z68.41
== END 2024-05-29 14:40 | disposition home health service (06) | DRG 690 ==
LOC: ED 06:32 → SUATTDRO 09:07 → EDINP 09:07 → 3N 18:20